=== PATIENT | male | born 1970 | race Hispanic/Latino ===

== ENCOUNTER 2024-01-28 10:17 | Observation (INO) | payer OTHER ==
--- NOTE | 2024-01-28 11:48 | RAD REPORT ---
EXAM DESCRIPTION: US - Extremity Venous Uni Ltd - 01/28/2024 11:41 am CLINICAL HISTORY: SWELLING Leg swelling and edema. COMPARISON: No comparisons FINDINGS: Left lower extremity venous system was interrogated with Doppler technique. Normal flow, c ompressibility and augmentation was noted. There is no DVT present.3.4 cm complex left Reynolds's cyst. 6.7 cm complex fluid collection surrounding the left knee anterior to lateral aspect. IMPRESSION: No evidence of left lower extremity deep venous thrombosis.
--- NOTE | 2024-01-28 12:05 | RAD REPORT ---
EXAM DESCRIPTION: RAD - Foot Left 3 View - 01/28/2024 11:59 am CLINICAL HISTORY: PAIN COMPARISON: No comparisons FINDINGS: Moderate soft tissue swelling is seen affecting the great toe. Tiny calcaneal spurs. No ac pedro fracture or dislocation. No evidence of marrow lesion
--- NOTE | 2024-01-28 12:06 | RAD REPORT ---
EXAM DESCRIPTION: RAD - Knee Left 3 View - 01/28/2024 11:59 am CLINICAL HISTORY: Pain;Swelling COMPARISON: No comparisons FINDINGS: There is a moderate suprapatellar joint effusion. No soft tissue gas. No fracture, disloca tion or aggressive marrow lesion.
--- NOTE | 2024-01-28 13:44 | EDPHYS ---
Physician Documentation [facility] Name: Saúl Ayoub Age: 53 yrs Sex: Male : 1970 Arrival Date: 01/28/2024 Time: 10:17 Bed 16 Private MD: ED Physician Gloria Calabrese HPI: 01/27 12:43 This 53 yrs old Male presents to ER via Ambulatory with complaints of Knee/Leg ci Swelling. 12:43 Patient is a 53-year-old male with PMH arthritis who presents to the ED with chief ci complaint of left knee pain that began last week, worse since last night. Endorses swelling, pain with ambulation, unable to bear weight, has been using crutches. Patient symptoms initially started as a sinus infection, endorses fever which he states is related to a sinus infection. Last night patient had swelling/redness from his left knee to his left thigh. Pt also endorses pain to the left foot. Patient was evaluated at an urgent care last week and given Medrol Dosepak which seemed to decrease the swelling. Patient states he has been following rheumatology, on [facility]. Reports similar episode of knee pain/foot pain in 2008, reports doctors were concerned about possible gout but all of his labs came back negative. And throughout the years, he occasionally he gets a flareup of his knee pain/swelling but he has never been this bad.. Historical: - Allergies: 10:42 No Known Allergies; nj1 - PMHx: 10:43 Arthritis; nj1 - PSHx: 10:42 None; nj1 - Immunization history:: Client reports receiving the 2nd dose of the Covid vaccine. - Infectious Disease History:: Denies. - Social history:: Smoking status: Patient denies any tobacco usage or history of. - History obtained from: . ROS: 12:43 Constitutional: Negative for fever, chills, and weight loss, Eyes: Negative for injury, ci pain, redness, and discharge, ENT: Negative for injury, pain, and discharge, Neck: Negative for injury, pain, and swelling, Cardiovascular: Negative for chest pain, palpitations, and edema, Respiratory: Negative for shortness of breath, cough, wheezing, and pleuritic chest pain, Abdomen/GI: Negative for abdominal pain, nausea, vomiting, diarrhea, and constipation, Back: Negative for injury and pain, MS/Extremity: Negative for injury and deformity. Positive left knee pain Skin: Negative for injury, rash, and discoloration, Neuro: Negative for headache, weakness, numbness, tingling, and seizure, Psych: Negative for depression, anxiety, suicide ideation, homicidal ideation, and hallucinations, Exam: 12:43 Constitutional: This is a well developed, well nourished patient who is awake, alert, ci and in no acute distress. Head/Face: Normocephalic, atraumatic. Eyes: Pupils equal round and reactive to light, extra-ocular motions intact. Lids and lashes normal. Conjunctiva and sclera are non-icteric and not injected. Cornea within normal limits. Periorbital areas with no swelling, redness, or edema. ENT: Nares patent. No nasal discharge, no septal abnormalities noted. Tympanic membranes are normal and external auditory canals are clear. Oropharynx with no redness, swelling, or masses, exudates, or evidence of obstruction, uvula midline. Mucous membranes moist. Neck: Trachea midline, no thyromegaly or masses palpated, and no cervical lymphadenopathy. Supple, full range of motion without nuchal rigidity, or vertebral point tenderness. No Meningismus. Chest/axilla: Normal chest wall appearance and motion. Nontender with no deformity. No lesions are appreciated. Cardiovascular: Regular rate and rhythm with a normal S1 and S2. No gallops, murmurs, or rubs. Normal PMI, no JVD. No pulse deficits. Respiratory: Lungs have equal breath sounds bilaterally, clear to auscultation and percussion. No rales, rhonchi or wheezes noted. No increased work of breathing, no retractions or nasal flaring. Abdomen/GI: Soft, non-tender, with normal bowel sounds. No distension or tympany. No guarding or rebound. No evidence of tenderness throughout. Back: No spinal tenderness. No costovertebral tenderness. Full range of motion. Skin: Warm, dry with normal turgor. Normal color with no rashes, no lesions, and no evidence of cellulitis. MS/ Extremity: Pulses equal, no cyanosis. Neurovascular intact. Full, normal range of motion. Left knee suprapatella tendernessto palpation, moderately swollen. Mild pain with passive range of motion. Left lateral tib-fib mildly tender to palpation. Left heel tenderness to palpation, no step- offs or deformity.DP/PT 2+, cap refill less than 2 seconds, sensation to light touch is intact, compartment soft. Neuro: Awake and alert, GCS 15, oriented to person, place, time, and situation. Cranial nerves II-XII grossly intact. Motor strength 5/5 in all extremities. Sensory grossly intact. Cerebellar exam normal. Normal gait. Psych: Awake, alert, with orientation to person, place and time. Behavior, mood, and affect are within normal limits. Vital Signs: 10:37 BP 138 / 84; Pulse 109; Resp 17; Temp 99.8(O); Pulse Ox 100% on R/A; Weight 88 kg; nj1 Height 5 ft. 9 in. ; 13:00 BP 134 / 84; Pulse 94; Resp 18; Pulse Ox 99% ; cp4 15:00 BP 146 / 78; Pulse 91; Resp 18; Pulse Ox 100% ; cp4 16:00 BP 134 / 75; Pulse 84; Resp 18; Pulse Ox 100% ; cp4 17:00 BP 132 / 79; Pulse 88; Resp 18; Pulse Ox 100% ; cp4 18:00 BP 148 / 82; Pulse 87; Resp 18; Pulse Ox 100% ; cp4 19:26 BP 137 / 77; Pulse 86; Resp 17 S; Pulse Ox 98% on R/A; ha1 20:20 BP 140 / 75; Pulse 81; Resp 19; Temp 99.2(O); Pulse Ox 99% on R/A; ha1 10:37 Body Mass Index 28.65 (88.00 kg, 175.26 cm) [facility] Procedures: 16:30 Performed Arthrocentesis. Discussed risks, benefits and alternatives with patient. ci Written informed consent was obtained. Left knee was cleaned with chlorhexidine. Lidocaine 1% was injected intradermally for anesthesia. Left knee aspirated from a superior lateral approach with sterile gloves on. 40 mL cloudy synovial fluid aspirated successfully. Patient tolerated well with no immediate complications.. MDM: 10:46 Patient medically screened. ci 12:43 Differential Diagnosis Fracture, dislocation, DVT, cellulitis, septic arthritis, gout. ci Data reviewed: vital signs, nurses notes. 13:37 ED course: Left knee is atraumatic, mild suprapatella effusion, no erythema, warmth, ci tenderness to palpation, no pain with passive range of motion. Discussed obtaining knee tap to rule out septic arthritis, patient stated that his knee does not hurt but left lateral leg hurts with ambulation. Given erythema of left upper thigh, initial concern for DVT, DVT ultrasound negative, possible early cellulitis. Will DC with antibiotic. Will need follow-up with PCP and orthopedic surgery.. 01/27 13:48 Order name: CBC with Diff; Complete Time: 14:47 ci 01/27 13:48 Order name: Basic Metabolic Panel; Complete Time: 15:26 ci 01/27 13:48 Order name: CRP; Complete Time: 15:26 ci 01/27 15:26 Interpretation: Abnormal: C-REACTIVE PROT 56.50. ci 01/27 15:41 Order name: ALBUMIN, SYNOVIAL FLUID EDMS 01/27 15:41 Order name: Body Fluid Cell Count EDMA 01/27 15:41 Order name: GLUCOSE, SYNOVIAL FLUID EDMS 01/27 15:41 Order name: LD, SYNOVIAL FLUID EDMA 01/27 15:41 Order name: TOTAL PROTEIN, SYNOVIAL FLUID EDMS 01/27 15:41 Order name: URIC ACID, SYNOVIAL FLUID EDMS 01/27 15:51 Order name: Body Fluid Culture EDMA 01/27 15:52 Order name: Gram Stain EDMA 01/27 16:30 Order name: Blood Culture Adult (2) ci 01/27 16:55 Order name: Lactate w/ 2H reflex if indic.; Complete Time: 17:33 ci 01/27 17:27 Order name: Body Fluid Cell Count; Complete Time: 18:48 EDMS 01/27 17:27 Order name: Body Fluid Culture EDMA 01/27 19:56 Order name: CBC with Automated Diff EDMS 01/27 19:56 Order name: CBC with Automated Diff EDMS 01/27 19:56 Order name: Comprehensive Metabolic Panel EDMA 01/27 19:56 Order name: Comprehensive Metabolic Panel EDMA 01/27 19:56 Order name: Vancomycin Level Trough EDMS 01/27 19:56 Order name: Vancomycin Level Trough EDMA 01/27 11:01 Order name: US Extremity Venous Unilateral Ltd; Complete Time: 11:52 ci 01/27 14:15 Interpretation: No acute disease: Per Radiologist's finding(s): IMPRESSION: No ci evidence of left lower extremity deep venous thrombosis. 01/27 11:01 Order name: XRAY Foot LEFT 3 View; Complete Time: 12:08 ci 01/27 14:15 Interpretation: Abnormal: Per Radiologist's finding(s): FINDINGS: Moderate soft tissue ci swelling is seen affecting the great toe. Tiny calcaneal spurs. No acute fracture or dislocation. No evidence of marrow lesion. 01/27 11:01 Order name: XRAY Knee LEFT 3 view; Complete Time: 12:08 ci 01/27 14:16 Interpretation: Abnormal: Per Radiologist's finding(s): FINDINGS: There is a moderate ci suprapatellar joint effusion. No soft tissue gas. No fracture, dislocation or aggressive marrow lesion. 01/27 19:56 Order name: CONS Physician Consult EDMS Administered Medications: 17:12 Drug: Rocephin IV 1 grams IV at calculated rate once; Given slow IV push per pharmacy cp4 instructions Route: IV; Rate: calculated rate; Site: left antecubital; 17:22 Follow up: Response: No adverse reaction; IV Status: Completed infusion cp4 17:25 Drug: vancoMYCIN IVPB 1 grams IVPB once over 2 hrs Route: IVPB; Infused Over: 2 hrs; cp4 Site: left antecubital; 18:40 Drug: Ketorolac IVP 15 mg IVP once Route: IVP; Site: left antecubital; cp4 19:20 Follow up: Response: No adverse reaction; Pain is decreased ha1 Disposition Summary: 01/28/24 18:28 Hospitalization Ordered Notes: Hospitalization Status: Observation ci Provider: Theresa Page Location: Telemetry/MedSurg (observation)(01/28/24 18:28) ci Condition: Stable(01/28/24 18:28) ci Problem: new(01/28/24 18:28) ci Symptoms: are unchanged(01/28/24 18:28) ci Bed/Room Type: Standard ci Room Assignment: 206(01/28/24 20:22) rv1 Diagnosis - Pain in left knee(01/28/24 18:28) ci - Effusion, left knee ci Forms: - Medication Reconciliation Form ci - SBAR form ci - Leadership Thank You Letter ci Signatures: Dispatcher [employer] EDLolis Mccauley rv1 Elle Frias RN RN nj1 Oralia Akers cp4 eonunekwu Gloria ci Shelby Grider RN ha1 Corrections: (The following items were deleted from the chart) 10:43 10:42 PMHx: None; nj1 nj1 12:53 12:43 Constitutional: Negative for fever, chills, and weight loss, Eyes: Negative for ci injury, pain, redness, and discharge, ENT: Negative for injury, pain, and discharge, Neck: Negative for injury, pain, and swelling, Cardiovascular: Negative for chest pain, palpitations, and edema, Respiratory: Negative for shortness of breath, cough, wheezing, and pleuritic chest pain, Abdomen/GI: Negative for abdominal pain, nausea, vomiting, diarrhea, and constipation, Back: Negative for injury and pain, MS/Extremity: Negative for injury and deformity. Left knee suprapatella tendernessto palpation, moderately swollen. No pain with passive range of motion. Left heel tenderness to palpation, no step- offs or deformity.DP/PT 2+, cap refill less than 2 seconds, sensation to light touch is intact, compartment soft. Skin: Negative for injury, rash, and discoloration, Neuro: Negative for headache, weakness, numbness, tingling, and seizure, Psych: Negative for depression, anxiety, suicide ideation, homicidal ideation, and hallucinations, ci 12:56 12:43 Patient is a 53-year-old male with PMH arthritis who presents to the ED with ci chief complaint of left knee pain that began last week, worse since last night. Endorses swelling, pain with ambulation. Last night patient had swelling to his left thigh and pain to the left foot. Patient was evaluated at an urgent care last week and given the Medrol Dosepak which seemed to decrease the swelling. Patient states he has been following rheumatology, on [facility]. Reports similar episode of knee pain/foot pain in 2009. ci 14:08 13:43 Home ci ll1 14:08 13:43 an acute exacerbation ci ll1 14:08 13:43 are unchanged ci ll1 14:08 13:43 Stable ci ll1 14:08 13:43 Cellulitis of left lower limb ci ll1 14:08 13:43 Pain in left knee ci ll1 14:08 13:43 Pain in left foot ci ll1 16:55 16:55 LACTATE+C.LAB.BRZ ordered. EDMS EDMS 19:05 12:43 Patient is a 53-year-old male with PMH arthritis who presents to the ED with ci chief complaint of left knee pain that began last week, worse since last night. Endorses swelling, pain with ambulation. Last night patient had swelling to his left thigh and pain to the left foot. Patient was evaluated at an urgent care last week and given Medrol Dosepak which seemed to decrease the swelling. Patient states he has been following rheumatology, on [facility]. Reports similar episode of knee pain/foot pain in 2008, reports doctors were concerned about possible gout but all of his labs came back negative. And throughout the years, he occasionally he gets a flareup of his knee pain/swelling.. ci 19:06 12:43 Constitutional: This is a well developed, well nourished patient who is awake, ci alert, and in no acute distress. Head/Face: Normocephalic, atraumatic. Eyes: Pupils equal round and reactive to light, extra-ocular motions intact. Lids and lashes normal. Conjunctiva and sclera are non-icteric and not injected. Cornea within normal limits. Periorbital areas with no swelling, redness, or edema. ENT: Nares patent. No nasal discharge, no septal abnormalities noted. Tympanic membranes are normal and external auditory canals are clear. Oropharynx with no redness, swelling, or masses, exudates, or evidence of obstruction, uvula midline. Mucous membranes moist. Neck: Trachea midline, no thyromegaly or masses palpated, and no cervical lymphadenopathy. Supple, full range of motion without nuchal rigidity, or vertebral point tenderness. No Meningismus. Chest/axilla: Normal chest wall appearance and motion. Nontender with no deformity. No lesions are appreciated. Cardiovascular: Regular rate and rhythm with a normal S1 and S2. No gallops, murmurs, or rubs. Normal PMI, no JVD. No pulse deficits. Respiratory: Lungs have equal breath sounds bilaterally, clear to auscultation and percussion. No rales, rhonchi or wheezes noted. No increased work of breathing, no retractions or nasal flaring. Abdomen/GI: Soft, non-tender, with normal bowel sounds. No distension or tympany. No guarding or rebound. No evidence of tenderness throughout. Back: No spinal tenderness. No costovertebral tenderness. Full range of motion. Skin: Warm, dry with normal turgor. Normal color with no rashes, no lesions, and no evidence of cellulitis. MS/ Extremity: Pulses equal, no cyanosis. Neurovascular intact. Full, normal range of motion. Left knee suprapatella tendernessto palpation, moderately swollen. No pain with passive range of motion. Left heel tenderness to palpation, no step- offs or deformity.DP/PT 2+, cap refill less than 2 seconds, sensation to light touch is intact, compartment soft. Neuro: Awake and alert, GCS 15, oriented to person, place, time, and situation. Cranial nerves II-XII grossly intact. Motor strength 5/5 in all extremities. Sensory grossly intact. Cerebellar exam normal. Normal gait. Psych: Awake, alert, with orientation to person, place and time. Behavior, mood, and affect are within normal limits. ci 19:08 16:30 Performed Arthrocentesis. Discussed risks, benefits and alternatives with ci patient. Written informed consent was obtained. Left knee was cleaned with chlorhexidine, left knee aspirated from a superior lateral approach with sterile gloves on. 40 mL cloudy synovial fluid aspirated successfully, patient tolerated well with no immediate complications.. ci 20:22 18:28 ci rv1
--- NOTE | 2024-01-28 13:44 | ER ---
Nurse's Notes [facility] Name: Saúl Ayoub Age: 53 yrs Sex: Male : 1970 Arrival Date: 01/28/2024 Time: 10:17 Bed 16 Private MD: Diagnosis: Pain in left knee;Effusion, left knee Presentation: 01/27 10:37 Chief complaint: Patient states: Left lower leg/knee swelling since last week, no pain nj1 unless he bears weight, seen at PCP on , took a round of steroids that he has finished, states swelling was worse yesterday, slightly better today. Advised to come to ED for further evaluation and treatment. Coronavirus screen: Vaccine status: Patient reports receiving the 2nd dose of the covid vaccine. Ebola Screen: Patient denies travel to an Ebola-affected area in the 21 days before illness onset. Initial Sepsis Screen: Does the patient meet any 2 criteria? No. Patient's initial sepsis screen is negative. Does the patient have a suspected source of infection? No. Patient's initial sepsis screen is negative. Risk Assessment: Do you want to hurt yourself or someone else? Patient reports no desire to harm self or others. Onset of symptoms was January 20, 2024. 10:37 Method Of Arrival: Ambulatory nj 10:37 Acuity: RON 3 nj1 Historical: - Allergies: 10:42 No Known Allergies; nj1 - PMHx: 10:43 Arthritis; nj1 - PSHx: 10:42 None; nj1 - Immunization history:: Client reports receiving the 2nd dose of the Covid vaccine. - Infectious Disease History:: Denies. - Social history:: Smoking status: Patient denies any tobacco usage or history of. - History obtained from: . Screenin:56 [facility] ED Fall Risk Assessment (Adult) History of falling in the last 3 months, cp4 including since admission No falls in past 3 months (0 pts) Confusion or Disorientation No (0 pts) Intoxicated or Sedated No (0 pts) Impaired Gait No (0 pts) Mobility Assist Device Used No (0 pt) Altered Elimination No (0 pt) Score/Fall Risk Level 0 - 2 = Low Risk Oriented to surroundings, Maintained a safe environment, Assessed \T\ reinforced patient's understanding of fall precautions, Hourly rounding (assess needs \T\ fall precautionary measures) done. Abuse screen: Denies threats or abuse. Nutritional screening: No deficits noted. Tuberculosis screening: No symptoms or risk factors identified. Assessment: 10:56 General: Appears in no apparent distress. Behavior is calm, cooperative, appropriate cp4 for age. Pain: Complains of pain in abdomen. Derm: Abscess located on abdomen. 13:55 Reassessment: Pending discharge, provider order lab work. cp4 19:35 General: Appears uncomfortable, Behavior is calm, cooperative. Pain: Complains of pain ha1 in medial aspect of left knee Pain does not radiate. Pain currently is 5 out of 10 on a pain scale. Aggravated by increased activity. Neuro: Level of Consciousness is awake, alert, obeys commands, Oriented to person, place, time, situation. Cardiovascular: Patient's skin is warm and dry. Cardiovascular:. Respiratory: Airway is patent Respiratory effort is even, unlabored, Respiratory pattern is regular, symmetrical. Derm: Skin Skin is pink, warm \T\ dry. Musculoskeletal: Circulation, motion, and sensation intact. 20:30 Reassessment: Patient and/or family updated on plan of care and expected duration. Pain ha1 level reassessed. Patient is alert, oriented x 3, equal unlabored respirations, skin warm/dry/pink. 20:48 Reassessment: fax sheet and SBAR sent. ha1 Vital Signs: 10:37 BP 138 / 84; Pulse 109; Resp 17; Temp 99.8(O); Pulse Ox 100% on R/A; Weight 88 kg; nj1 Height 5 ft. 9 in. ; 13:00 BP 134 / 84; Pulse 94; Resp 18; Pulse Ox 99% ; cp4 15:00 BP 146 / 78; Pulse 91; Resp 18; Pulse Ox 100% ; cp4 16:00 BP 134 / 75; Pulse 84; Resp 18; Pulse Ox 100% ; cp4 17:00 BP 132 / 79; Pulse 88; Resp 18; Pulse Ox 100% ; cp4 18:00 BP 148 / 82; Pulse 87; Resp 18; Pulse Ox 100% ; cp4 19:26 BP 137 / 77; Pulse 86; Resp 17 S; Pulse Ox 98% on R/A; ha1 20:20 BP 140 / 75; Pulse 81; Resp 19; Temp 99.2(O); Pulse Ox 99% on R/A; ha1 10:37 Body Mass Index 28.65 (88.00 kg, 175.26 cm) nj1 ED Course: 10:18 Patient arrived in ED. rg4 10:42 Triage completed. nj1 10:43 Arm band placed on right wrist. nj1 10:46 Gloria Calabrese is Attending Physician. ci 10:53 Oralia Akers is Primary Nurse. cp4 10:56 Bed in low position. Call light in reach. Side rails up X 1. Provided Education on: cp4 abscess. 10:56 No provider procedures requiring assistance completed. Inserted Patient did not have IV cp4 access during this emergency room visit. 11:43 US Extremity Venous Unilateral Ltd In Process Unspecified. EDMS 12:00 XRAY Foot LEFT 3 View In Process Unspecified. EDMS 12:00 XRAY Knee LEFT 3 view In Process Unspecified. EDMS 17:12 Lactate w/ 2H reflex if indic. Sent. cp4 17:12 Blood Culture Adult (2) Sent. cp4 18:26 Theresa Page MD is Hospitalizing Provider. ci 18:28 Body Fluid Cell Count Sent. cp4 18:28 Body Fluid Culture Sent. cp4 20:35 Inserted saline lock: 20 gauge in left antecubital area, using aseptic technique. ha1 Administered Medications: 17:12 Drug: Rocephin IV 1 grams IV at calculated rate once; Given slow IV push per pharmacy cp4 instructions Route: IV; Rate: calculated rate; Site: left antecubital; 17:22 Follow up: Response: No adverse reaction; IV Status: Completed infusion cp4 17:25 Drug: vancoMYCIN IVPB 1 grams IVPB once over 2 hrs Route: IVPB; Infused Over: 2 hrs; cp4 Site: left antecubital; 18:40 Drug: Ketorolac IVP 15 mg IVP once Route: IVP; Site: left antecubital; cp4 19:20 Follow up: Response: No adverse reaction; Pain is decreased ha1 Medication: 10:56 VIS not applicable for this client. cp4 Outcome: 18:28 Decision to Hospitalize by Provider. ci 21:39 Admitted to Med/surg accompanied by nurse, via wheelchair, room 206, with chart, Report ha1 called to JIM Almeida 21:39 Condition: stable 21:39 Discharge instructions given to patient, Instructed on the need for admit, Demonstrated understanding of instructions, 21:40 Patient left the ED. ha1 Signatures: Dispatcher [employer] Frida Woodard 4 Shelby Grider RN RN 1 Elle Frias RN RN nj1 Oralia Akers cp4 [email or web address] Corrections: (The following items were deleted from the chart) 10:43 10:42 PMHx: None; nj1 nj1 14:07 13:43 Discharge ordered by MD. galicia [facility]
[2024-01-28 14:34] LABS: Absolute Lymphocytes (CBC) 0.8 K/uL (0.7-4.9); Absolute Monocytes 1.7 K/uL (0.1-1.3); Absolute Neutrophil 8.8 K/uL (1.8-8.0); Basophils % 0.2 % (0-1.3); Eosinophils % 0.4 % (0-4.4); Hematocrit 36.7 % (39.6-49.0); Hemoglobin 12.1 g/dL (13.6-17.9); Lymphocytes % 7.4 % (15.3-44.8); MCH 29.7 pg (27.0-35.0); MCV 89.9 fL (80-100); MPV 7.4 fL (7.6-11.3); Monocytes % 14.7 % (3.3-12.3); Neutrophils % 77.3 % (41.7-73.7); Platelets 504 thou/uL (152-406); RBC Red Blood Cell Count 4.08 M/uL (4.33-5.43); Red Cell Distribution Width 12.2 % (12.1-15.2)
[2024-01-28 14:49] LABS: Anion Gap 6.7 mEq/L (5.0-15.0); C-Reactive Protein 56.5 mg/L (<3.00); Potassium 3.7 mEq/L (3.5-5.1)
[2024-01-28] MEDS ORDERED: LIDOCAINE 1% 20 ML MDV ONE (15:48)
[2024-01-28] MEDS ORDERED: CEFTRIAXONE 1000 MG/VIAL ONE (16:50)
[2024-01-28] MEDS ORDERED: VANCOMYCIN 1 GM/VIAL ONE (16:50)
[2024-01-28] MEDS ORDERED: NA CHLORIDE 0.9% 250 ML ONE (16:51)
[2024-01-28 18:36] LABS: Appearance VERY TURBID (CLEAR); Body Fluid Source SYNOVIAL; Color of Supernate Not Xanthochromic (Not Xantho); Color of fluid Yellow (COLORLESS); Tube # #1
[2024-01-28] MEDS ORDERED: KETOROLAC 30 MG/ML INJ ONE (18:36)
[2024-01-28 18:37] LABS: Body Fluid Lymphocytes 11 %; Body Fluid WBC 26920 /mm^3; Fluid Total Cells Count 100
[2024-01-28] MEDS ORDERED: ACETAMINOPHEN 500 MG TAB PO PRN (19:49)
[2024-01-28] MEDS ORDERED: ONDANSETRON 4 MG/2 ML VIAL IV PRN (19:49)
[2024-01-28] MEDS ORDERED: MORPHINE 2 MG/ML SYR IV PRN (19:49)
[2024-01-28] MEDS ORDERED: VANCOMYCIN 1 GM in NA CHLORIDE 0.9% 250 ML IVPB SCH (19:54)
--- NOTE | 2024-01-28 20:02 | P.HP ---
Certification for Inpatient With expected LOS: >2 Midnights Patient will require the following post-hospital care: None Practitioner: I am a practitioner with admitting privileges, knowledge of patient current condition, hospital course, and medical plan of care. Services: Services provided to patient in accordance with Admission requirements found in Title 42 Section 412.3 of the Code of Federal Regulations Patient History Date of Service: 01/28/24 Reason for admission: Right knee pain and swelling History of Present Illness: 53-year-old male with history of inflammatory joint disease, status post right knee swelling in 2008, follows with rheumatology at [facility], states he is being worked up for possible ankylosing spondylitis, state he has been ruled out for gouty arthropathy in the past, currently on Otezla as well as Rinvoq for immunosuppression; presented to the hospital because of new right knee swelling since the last 1 week associated with feeling of chills, difficulty with ambulation due to the swelling. He also describe pain over his right ankle and Achilles. He has been unable to ambulate since then and been using crutches. He presented to the hospital because of worsening symptoms today. On arrival in the ED he was mildly tachycardic at 109, he was also slightly febrile at 99.8. X-ray of the right knee shows moderate joint effusion no dislocation, x- ray of the right ankle shows effusion of the right great toe. Knee tap was done by the emergency room physician with cell count showing WBC of 26,000 with 88% neutrophilia, orthopedics Dr. Cleveland was discussed with and suspected not due to infectious etiology. Patient still unable to ambulate with significant difficulty in bearing weight on the right leg. Patient has been admitted for further workup Home medications list reviewed: Yes - Past Medical/Surgical History Has patient received pneumonia vaccine in the past: No -: Inflammatory joint disease Past Surgical History: Patient denies surgical history - Family History Family History: Reviewed- Non-Contributory - Social History Smoking Status: Never smoker Place of Residence: Home Review of Systems 10-point ROS is otherwise unremarkable General: Fever, Chills Musculoskeletal: Leg Pain, Foot Pain Physical Examination - Physical Exam General: Alert, In no apparent distress, Oriented x3, Cooperative HEENT: Atraumatic, Normocephalic, PERRLA Neck: Supple, 2+ carotid pulse no bruit, JVD not distended Respiratory: Clear to auscultation bilaterally, Normal air movement Cardiovascular: No edema, Normal pulses, Regular rate/rhythm, Normal S1 S2 Gastrointestinal: Normal bowel sounds, Soft and benign, Non-distended, No tenderness, No rebound Musculoskeletal: Swelling, Tenderness, Other (Swelling and edema of the right knee, extensive tenderness of the right Achilles tendon) Neurological: Normal gait, Normal speech, Normal strength at 5/5 x4 extr, Normal tone, Sensation intact - Studies Laboratory Data (last 24 hrs) 01/28/24 01/28/24 14:00 14:00 WBC 11.40 H Hgb 12.1 L Hct 36.7 L Plt Count 504 H Sodium 139 Potassium 3.7 BUN 22 H Creatinine 1.02 Glucose 134 H Assessment and Plan - Problems (Diagnosis) (1) Knee effusion, right Current Visit: Yes Status: Acute (2) Acute right ankle pain Current Visit: Yes Status: Acute - Plan Impression Right knee effusion Right ankle painlikely due to tenosynovitis History of chronic inflammatory joint diseaseof unclear etiology Plan Will admit patient to observation Given suspected inflammatory rather than infectious knee arthritis given the inflammatory tenosynovitis Will start patient on empirical IV steroids Follow knee aspirate culture to rule out infectious etiology Will cover empirically with vancomycin until culture negative Pain control PT and OT Monitor for clinical response Subcutaneous Lovenox for DVT prophylaxis Disposition possible discharge in 24 to 48 hours - Advance Directives Does patient have a Living Will: No Does patient have a Durable POA for Healthcare: No - Code Status/Comfort Care Code Status Assessed: Yes Code Status: Full Code Physician Review: Patient Assessed, Agree with Above Assessment and Plan Time Spent Managing Pts Care (In Minutes): 65
[2024-01-28 22:13] VITALS: BMI 27.8
[2024-01-28] MEDS: NA CHLORIDE 0.9% 1,000 ML IV SCH (23:11)
[2024-01-28] MEDS: FAMOTIDINE 20 MG TAB PO SCH (23:12)
[2024-01-28] MEDS: VANCOMYCIN 1 GM/VIAL ONE (23:15)
[2024-01-28] MEDS: VANCOMYCIN 1.25 GM in NA CHLORIDE 0.9% 250 ML IVPB ONE (23:15)
[2024-01-28] MEDS: NA CHLORIDE 0.9% 250 ML ONE (23:16)
[2024-01-28] MEDS: METHYLPREDNISOLONE 125 MG INJ IV SCH (23:16)
[2024-01-28 23:42] VITALS: O2SAT 98
[2024-01-29 03:39] LABS: Absolute Lymphocytes (CBC) 0.5 K/uL (0.7-4.9); Absolute Monocytes 0.4 K/uL (0.1-1.3); Absolute Neutrophil 9.5 K/uL (1.8-8.0); Basophils % 0.1 % (0-1.3); Eosinophils % 0.2 % (0-4.4); Hematocrit 35.9 % (39.6-49.0); Hemoglobin 12.3 g/dL (13.6-17.9); Lymphocytes % 4.5 % (15.3-44.8); MCH 30.6 pg (27.0-35.0); MCHC 34.1 g/dL (32.0-36.0); MCV 89.8 fL (80-100); MPV 7.2 fL (7.6-11.3); Monocytes % 4.2 % (3.3-12.3); Platelets 435 thou/uL (152-406); Red Cell Distribution Width 12.4 % (12.1-15.2)
[2024-01-29 03:49] LABS: Albumin 2.7 g/dL (3.4-5.0); Albumin/Globulin Ratio 0.7 (1.1-1.8); Anion Gap 6.8 mEq/L (5.0-15.0); Bilirubin Total 0.4 mg/dL (0.2-1.0); Potassium 3.8 mEq/L (3.5-5.1); Protein, Total 6.7 g/dL (6.4-8.2)
[2024-01-29 05:08] LABS: Band Neutrophils 12 % (0-1); Blood Morphology Comment NOT SEEN (NOT SEEN); Differential Total Cells Count 100; Lymphocytes 3 % (15-42); Monocytes 5 % (0-10); Platelet Estimate ADEQ; Segmented Neutrophils 80 % (40-80)
[2024-01-29] MEDS: ENOXAPARIN 40 MG/0.4 ML SQ SCH (10:00)
[2024-01-29] MEDS: VANCOMYCIN 1.5 GM in NA CHLORIDE 0.9% 500 ML IVPB SCH (10:05)
[2024-01-29 10:47] VITALS: BP 132/79; TEMP 97.4
[2024-01-29] MEDS ORDERED: VANCOMYCIN 1.5 GM in NA CHLORIDE 0.9% 500 ML IVPB SCH (11:00)
--- NOTE | 2024-01-29 12:38 | P.PN ---
Subjective Date of Service: 01/29/24 Chief Complaint: Left knee pain and swelling Subjective: Improving (Pt states his knee and ankle are much better today) <Evelia Karimi - Last Filed: 01/29/24 12:39> Date of Service: 01/30/24 <Marine Sanchez - Last Filed: 01/30/24 22:07> Review of Systems 10-point ROS is otherwise unremarkable Musculoskeletal: As per HPI <Evelia Karimi - Last Filed: 01/29/24 12:39> Physical Examination - Vital Signs Temperature: 97.4 F Blood Pressure: 132/79 Pulse: 79 Respirations: 18 Pulse Ox (%): 97 - Physical Exam General: Alert, In no apparent distress, Oriented x3 HEENT: Atraumatic, Normocephalic Neck: 2+ carotid pulse no bruit Respiratory: Normal air movement Cardiovascular: Normal pulses, Regular rate/rhythm Capillary refill: <2 Seconds Gastrointestinal: Soft and benign Musculoskeletal: No erythema, Tenderness, Other (swelling and tenderness to left knee and ankle, significantly improved from pt perception and from photos) Integumentary: No rashes Neurological: Normal speech, Normal tone Lymphatics: No axilla or inguinal lymphadenopathy External genitalia: Deferred Rectal: Deferred - Studies Laboratory Data (last 24 hrs) 01/28/24 01/28/24 14:00 14:00 WBC 11.40 H Hgb 12.1 L Hct 36.7 L Plt Count 504 H Sodium 139 Potassium 3.7 BUN 22 H Creatinine 1.02 Glucose 134 H Microbiology Data (last 24 hrs): 01/28/24 16:30 Body Fluid - Body Fluid Gram Stain - Final <Evelia Karimi - Last Filed: 01/29/24 12:39> - Studies Microbiology Data (last 24 hrs): 01/28/24 16:30 Body Fluid - Body Fluid Gram Stain - Final <Marine Sanchez - Last Filed: 01/30/24 22:07> Assessment And Plan - Plan (1) Knee effusion, left Current Visit: Yes Status: Acute (2) Acute left ankle pain Current Visit: Yes Status: Acute Left knee effusion Left ankle painlikely due to tenosynovitis History of chronic inflammatory joint diseaseof unclear etiology Plan Will admit patient to observation Consult Dr. Serrato Given suspected inflammatory rather than infectious knee arthritis given the inflammatory tenosynovitis Will start patient on empirical IV steroids Follow knee aspirate culture to rule out infectious etiology Will cover empirically with vancomycin until culture negative Pain control PT and OT Monitor for clinical response Subcutaneous Lovenox for DVT prophylaxis Disposition possible discharge in 24 to 48 hours - Advance Directives Does patient have a Living Will: No Does patient have a Durable POA for Healthcare: No Physician Review: Patient Assessed, Agree with Above Assessment and Plan <Evelia Karimi - Last Filed: 01/29/24 12:39> - Plan Pt seen and examined. I agree with the note by the HYDROLOGIC MODELER. Continue steroid and r/o infection of the joint. continue empiric vanc. <Marine Sanchez - Last Filed: 01/30/24 22:07>
--- NOTE | 2024-01-29 15:39 | P.DS ---
Admission Date: 01/28/24 Discharge Date: 01/29/24 Reason for Admission: Left knee pain and swelling Consultations: Dr. Serrato Procedures: Joint aspiration Brief History of Present Illness: 53-year-old male with history of inflammatory joint disease, status post right knee swelling in 2008, follows with rheumatology at [facility], states he is being worked up for possible ankylosing spondylitis, state he has been ruled out for gouty arthropathy in the past, currently on Otezla as well as Rinvoq for immunosuppression; presented to the hospital because of new right knee swelling since the last 1 week associated with feeling of chills, difficulty with ambulation due to the swelling. He also describe pain over his right ankle and Achilles. He has been unable to ambulate since then and been using crutches. He presented to the hospital because of worsening symptoms today. On arrival in the ED he was mildly tachycardic at 109, he was also slightly febrile at 99.8. X-ray of the right knee shows moderate joint effusion no dislocation, x- ray of the right ankle shows effusion of the right great toe. Knee tap was done by the emergency room physician with cell count showing WBC of 26,000 with 88% neutrophilia, orthopedics Dr. Cleveland was discussed with and suspected not due to infectious etiology. Patient still unable to ambulate with significant difficulty in bearing weight on the right leg. Patient has been admitted for further workup Hospital Course: Mr. Ayoub did well over the course of his admission. This morning his left knee is much less swollen and he states his left ankle and foot are also less swollen. Gram stain of aspirate of left knee without growth. We will discharge him to his roll over loader for follow-up with Levaquin 500 p.o. daily x 1 week, prednisone 20 mg p.o. twice daily x 3 days, and tramadol as needed pain. <Evelia Karimi - Last Filed: 01/29/24 15:43> Admission Date: 01/28/24 Discharge Date: 01/31/24 Hospital Course: Pt seen and examined. I agree with the note by the CORROSION PREVENTION METAL SPRAYER. THe eft knee swelling improved. No growth on aspirate. Will dc pt with levaquin and prednisone. He was advised to follow up with his Confection[employer] Laboratory Manager. <Marine Sanchez - Last Filed: 01/31/24 21:52> Disposition: ROUTINE DISCHARGE Discharge Condition: GOOD Vital Signs/Physical Exam: Temp Pulse Resp BP Pulse Ox 97.4 F 79 18 132/79 97 01/29/24 12:41 01/29/24 12:41 01/29/24 12:41 01/29/24 12:41 01/29/24 12:41 General: Alert, In no apparent distress, Oriented x3 HEENT: Atraumatic Neck: 2+ carotid pulse no bruit Respiratory: Normal air movement Cardiovascular: Normal pulses, Regular rate/rhythm Gastrointestinal: Soft and benign Musculoskeletal: Other (left knee with edema, no erythema, bandaid over aspiration site, left ankle/foot with sensation and pulses normal, no visible e butch) Integumentary: No rashes Neurological: Normal speech, Normal tone Lymphatics: No axilla or inguinal lymphadenopathy External genitalia: Deferred Rectal: Deferred Laboratory Data at Discharge: WBC 10.40 thou/uL (4.3-10.9) 01/29/24 02:44 Hgb 12.3 g/dL (13.6-17.9) L 01/29/24 02:44 Hct 35.9 % (39.6-49.0) L 01/29/24 02:44 Plt Count 435 thou/uL (152-406) H 01/29/24 02:44 Sodium 139 mEq/L (136-145) 01/29/24 02:44 Potassium 3.8 mEq/L (3.5-5.1) 01/29/24 02:44 BUN 23 mg/dL (7-18) H 01/29/24 02:44 Creatinine 0.88 mg/dL (0.70-1.30) 01/29/24 02:44 Glucose 185 mg/dL (74-106) H 01/29/24 02:44 Total Bilirubin 0.4 mg/dL (0.2-1.0) 01/29/24 02:44 AST 19 U/L (15-37) 01/29/24 02:44 ALT 42 U/L (16-61) 01/29/24 02:44 Alkaline Phosphatase 74 U/L (45-117) 01/29/24 02:44 <Karimi,Evelia Zaki - Last Filed: 01/29/24 15:43> Vital Signs/Physical Exam: Temp Pulse Resp BP Pulse Ox 97.4 F 79 18 132/79 97 01/29/24 12:41 01/29/24 12:41 01/29/24 12:41 01/29/24 12:41 01/29/24 12:41 Laboratory Data at Discharge: WBC 10.40 thou/uL (4.3-10.9) 01/29/24 02:44 Hgb 12.3 g/dL (13.6-17.9) L 01/29/24 02:44 Hct 35.9 % (39.6-49.0) L 01/29/24 02:44 Plt Count 435 thou/uL (152-406) H 01/29/24 02:44 Sodium 139 mEq/L (136-145) 01/29/24 02:44 Potassium 3.8 mEq/L (3.5-5.1) 01/29/24 02:44 BUN 23 mg/dL (7-18) H 01/29/24 02:44 Creatinine 0.88 mg/dL (0.70-1.30) 01/29/24 02:44 Glucose 185 mg/dL (74-106) H 01/29/24 02:44 Total Bilirubin 0.4 mg/dL (0.2-1.0) 01/29/24 02:44 AST 19 U/L (15-37) 01/29/24 02:44 ALT 42 U/L (16-61) 01/29/24 02:44 Alkaline Phosphatase 74 U/L (45-117) 01/29/24 02:44 <Marine Sanchez - Last Filed: 01/31/24 21:52> Diet: Regular Activity: Ad sony <Karimi,Evelia Zaki - Last Filed: 01/29/24 15:43> <Marine Sanchez - Last Filed: 01/31/24 21:52> Home Medications: Apremilast [Otezla] 30 mg PO DAILY 01/29/24 Atorvastatin Calcium [Lipitor] 40 mg PO DAILY 01/29/24 Azelastine HCl [Astepro] 137 mcg IH BIDP PRN 01/29/24 Cyclobenzaprine HCl [Flexeril] 5 mg PO BEDTIME 01/29/24 Gabapentin [Neurontin*] 200 mg PO BEDTIME 01/29/24 Linaclotide [Linzess] 145 mcg PO DAILY 01/29/24 Montelukast [Singulair*] 10 mg PO BEDTIME 01/29/24 Tramadol HCl [Tramadol HCl ER] 100 mg PO DAILY PRN #12 cap.sr 24h 01/29/24 Upadacitinib [Rinvoq] 15 mg PO DAILY 01/29/24 Valsartan 160 mg PO DAILY 01/29/24 levoFLOXacin [Levaquin] 500 mg PO DAILY #7 tab 01/29/24 predniSONE [Deltasone] 20 mg PO BID #6 tab 01/29/24 New Medications: levoFLOXacin [Levaquin] 500 mg PO DAILY #7 tab predniSONE [Deltasone] 20 mg PO BID #6 tab Tramadol HCl [Tramadol HCl ER] 100 mg PO DAILY PRN #12 cap.sr 24h PRN Reason: Pain Scale 5-7 (Moderate) Physician Discharge Instructions: Okay to DC IV and DC home Follow-up with primary care provider in 1 to 2 weeks Follow-up with Rheumatology in 1 week Please call the inpatient unit for any questions or concerns regarding hospital stay Return to the ER for worsening symptoms Mr. Ayoub did well over the course of his admission. This morning his left knee is much less swollen and he states his left ankle and foot are also less swollen. Gram stain of aspirate of left knee without growth. We will discharge him to his roll over loader for follow-up with Levaquin 500 p.o. daily x 1 week, prednisone 20 mg p.o. twice daily x 3 days, and tramadol as needed pain. Followup: Jaylyn Overton MD [OUTSIDE PHYSICIAN] - 1-2 Weeks
== END 2024-01-29 16:39 | disposition home or self-care (01) ==
LOC: ER 10:17 → ERHOLD 19:49 → 2ND 21:33
PROVIDERS: ADMIT Internal Medicine; ATTEND Hospitalist
PROC: 0S9C3ZX Drainage of Right Knee Joint, Percutaneous Approach, Diagnostic (ICD-10-PCS; principal; 2024-01-28)
DX: M25.461 Effusion, right knee (principal); M06.4 Inflammatory polyarthropathy
CPT/HCPCS: 20605; 87040 ×2; 87070; 85025 ×2; 80048; 36415 ×2; 89050; 83615; 84157; 82945; 83605; 80202; 84560; 80053; 82042; 86140; 73630; 73562; 93971; 96375; 96374; 99285; J2001; J1650; J2930 ×3; J7050 ×2; J7040; J7030; J0696; G0378 ×4